=== PATIENT | male | born 1960 | race Caucasian/White ===

== ENCOUNTER → 2018-02-11 | Outpatient (CLI) | payer OTHER | LOC: M OUTALCOH 09:14 | DX: Z13.9 Encounter for screening, unspecified (principal); F10.20 Alcohol dependence, uncomplicated ==

== ENCOUNTER 2018-02-19 13:14 | Outpatient (RCR) | payer OTHER | END 2018-02-22 | LOC: M OUTALCOH 13:14 | DX: F10.20 Alcohol dependence, uncomplicated (principal); F13.20 Sedative, hypnotic or anxiolytic dependence, uncomplicated; F15.20 Other stimulant dependence, uncomplicated; F17.200 Nicotine dependence, unspecified, uncomplicated ==

== ENCOUNTER 2018-02-24 14:28 | Outpatient (RCR) | payer OTHER | END 2018-03-25 | LOC: M OUTALCOH 14:28 | DX: F10.20 Alcohol dependence, uncomplicated (principal); F13.20 Sedative, hypnotic or anxiolytic dependence, uncomplicated; F15.20 Other stimulant dependence, uncomplicated; F17.200 Nicotine dependence, unspecified, uncomplicated ==

== ENCOUNTER 2018-05-05 09:21 | Outpatient (RCR) | payer OTHER | END 2018-05-25 | LOC: M OUTALCOH 05-12 16:00 | DX: F10.20 Alcohol dependence, uncomplicated (principal); F13.20 Sedative, hypnotic or anxiolytic dependence, uncomplicated; F17.200 Nicotine dependence, unspecified, uncomplicated; F15.20 Other stimulant dependence, uncomplicated | CPT/HCPCS: 90834 ==

== ENCOUNTER 2018-05-29 15:00 | Outpatient (RCR) | payer OTHER | END 2018-06-25 | LOC: M OUTALCOH 06-02 16:00 | DX: F10.20 Alcohol dependence, uncomplicated (principal); F13.20 Sedative, hypnotic or anxiolytic dependence, uncomplicated; F15.20 Other stimulant dependence, uncomplicated; F17.200 Nicotine dependence, unspecified, uncomplicated ==

== ENCOUNTER 2018-06-30 14:15 | Outpatient (RCR) | payer OTHER | END 2018-07-25 | LOC: M OUTALCOH 07-14 12:49 | DX: F10.20 Alcohol dependence, uncomplicated (principal); F13.20 Sedative, hypnotic or anxiolytic dependence, uncomplicated; F15.20 Other stimulant dependence, uncomplicated; F17.200 Nicotine dependence, unspecified, uncomplicated ==